=== PATIENT | female | born 1960 | race Caucasian/White ===

== ENCOUNTER → 2023-04-16 | Outpatient (CLI) | payer OTHER ==
[2023-04-18 15:12] LABS: HPV 16 Negative (Negative); HPV 18 Negative (Negative); HPV OTHER HR TYPES Negative (Negative)
== END | disposition home or self-care (01) ==
LOC: LAB SHORT 14:09 → LAB 14:09
PROVIDERS: Obstetrics & Gynecology
DX: Z01.419 Encounter for gynecological examination (general) (routine) without abnormal findings (principal)
CPT/HCPCS: 87624; G0145

== ENCOUNTER 2024-08-15 13:12 | Observation (INO) | payer OTHER ==
[~2024-08-15] VITALS: Ht 157.5 cm; Wt 55.8 kg
[2024-08-15 14:21] LABS: BASOPHILS ABSOLUTE AUTO 0.02 K/mm3 (0.00-0.23); BASOPHILS PERCENT AUTO 0 % (0-2); EOSINOPHILS ABSOLUTE AUTO 0.01 K/mm3 (0.00-0.68); EOSINOPHILS PERCENT AUTO 0 % (0-6); Hematocrit 39.5 % (33.0-51.0); Hemoglobin 13.5 g/dL (11.5-16.0); IMMATURE GRAN ABSOLUTE AUTO 0.05 K/mm3 (0.00-0.10); IMMATURE GRAN PERCENT AUTO 0 % (0-1); LYMPHOCYTES ABSOLUTE AUTO 1.39 K/mm3 (0.84-5.20); LYMPHOCYTES PERCENT AUTO 9 % (21-46); MONOCYTES ABSOLUTE AUTO 0.96 K/mm3 (0.16-1.47); MONOCYTES PERCENT AUTO 7 % (4-13); Mean Corpuscular HGB 30.1 pg (26.0-34.0); Mean Corpuscular HGB Conc 34.2 g/dL (31.5-36.5); Mean Corpuscular Volume 88 fL (80-100); Mean Platelet Volume 9.5 fL (9.1-12.4); NEUTROPHILS ABSOLUTE AUTO 12.32 K/mm3 (1.96-9.15); NEUTROPHILS PERCENT AUTO 84 % (41-73); Platelet Count 224 K/mm3 (150-400); RDW Coefficient Variation 13.5 % (11.7-14.2); RDW Standard Deviation 43.9 fL (35.1-46.3); Red Blood Cell Count 4.48 M/mm3 (3.80-5.20); White Blood Cell Count 14.75 K/mm3 (4.00-11.30)
[2024-08-15 14:30] LABS: Source, Urine Clean Catch
[2024-08-15 14:31] LABS: Albumin, Blood 3.6 g/dL (3.4-5.0); Bilirubin, Total 2.4 mg/dL (0.1-1.0); Bun/Creatinine Ratio 24.8 (12.0-20.0); Calcium, Blood 9.4 mg/dL (8.5-10.1); Creatinine, Blood 0.65 mg/dL (0.40-1.00); Globulin, Blood 3.7 g/dL (2.2-4.0); Potassium, Blood 3.4 mmol/L (3.5-5.5); Total Protein, Blood 7.3 g/dL (6.4-8.2)
[2024-08-15 14:35] LABS: Appearance, Urine Hazy (Clear); Blood, Urine 5+ (Neg); Color, Urine Amber (P-Yellow); Glucose Qualitative, Urine Neg (Neg); Ketones, Urine 4+ (Neg); Leukocyte Esterase, Urine 1+ (Neg); Nitrite, Urine Neg (Neg); Protein, Urine 2+ (Neg); Specific Gravity, Urine 1.025 (1.003-1.022); Urobilinogen, Urine 1+ (Normal)
[2024-08-15 15:06] LABS: Bilirubin, Urine 1+ (Neg)
[2024-08-15 15:07] LABS: Amorphous Light (0-Heavy); Bacteria Many /hpf; Hyaline Casts 0-2 /lpf (0-2); Mucus Heavy (0-Heavy); Squamous Epithelial Cells Mod /hpf (Few); Transitional Epithelial Cells Few /hpf (0-Rare)
[2024-08-15 15:08] LABS: Red Blood Cells, Urine 50-100 /hpf (0-2)
[2024-08-15] MEDS ORDERED: Ondansetron HCl 2 MG / ML 2ML Vial IV ONE (15:45)
[2024-08-15] MEDS ORDERED: XANAX0.25 MG PO ×2 (15:46)
[2024-08-15] MEDS ORDERED: FOSAMAX70 MG PO ×2 (15:46)
[2024-08-15] MEDS ORDERED: MetroNIDAZOLE 500MG/NS 100 ml 100 ML IV ONE (15:55)
[2024-08-15] MEDS ORDERED: Morphine Sulfate 4 MG/1 ML Injection IV ONE (16:00)
[2024-08-15] MEDS ORDERED: CefTRIAXone Sodium 1,000 MG in NS 100 ML IV ONE (16:00)
[2024-08-15] MEDS ORDERED: Ondansetron HCl 2 MG / ML 2ML Vial IV PRN (16:40)
[2024-08-15] MEDS ORDERED: FLU VACC TS2024-25(6MOS UP)/PF 45 MCG/0.5 ML SYRINGE IM SCH (16:40)
[2024-08-15] MEDS ORDERED: Lactated Ringer's 1,000 ML IV SCH (16:40)
[2024-08-15] MEDS ORDERED: FentaNYL Citrate 50 MCG/ML 2 ML Injection IV PRN (16:40)
[2024-08-15] MEDS ORDERED: Potassium Chloride 20 MEQ TabCR PO ONE (16:45)
[2024-08-15 19:06] VITALS: BP 120/81
[2024-08-15] MEDS ORDERED: Lactobacil 2-S.Thermo-Bifido 1 1 Cap PO SCH (21:00)
[2024-08-16] VITALS (9 sets, daily range): BP systolic 102–121; BP diastolic 51–67
[2024-08-16] MEDS ORDERED: MetroNIDAZOLE 500MG/NS 100 ml 100 ML IV SCH
[2024-08-16] MEDS ORDERED: FentaNYL Citrate 50 MCG/ML 2 ML Injection IV ONE (05:00)
[2024-08-16 05:34] LABS: BASOPHILS ABSOLUTE AUTO 0.03 K/mm3 (0.00-0.23); BASOPHILS PERCENT AUTO 0 % (0-2); EOSINOPHILS ABSOLUTE AUTO 0.03 K/mm3 (0.00-0.68); EOSINOPHILS PERCENT AUTO 0 % (0-6); Hematocrit 34.9 % (33.0-51.0); Hemoglobin 11.9 g/dL (11.5-16.0); IMMATURE GRAN ABSOLUTE AUTO 0.06 K/mm3 (0.00-0.10); IMMATURE GRAN PERCENT AUTO 1 % (0-1); LYMPHOCYTES ABSOLUTE AUTO 1.72 K/mm3 (0.84-5.20); LYMPHOCYTES PERCENT AUTO 13 % (21-46); MONOCYTES ABSOLUTE AUTO 1.14 K/mm3 (0.16-1.47); MONOCYTES PERCENT AUTO 9 % (4-13); Mean Corpuscular HGB 30.1 pg (26.0-34.0); Mean Corpuscular HGB Conc 34.1 g/dL (31.5-36.5); Mean Corpuscular Volume 88 fL (80-100); Mean Platelet Volume 9.5 fL (9.1-12.4); NEUTROPHILS ABSOLUTE AUTO 10.34 K/mm3 (1.96-9.15); NEUTROPHILS PERCENT AUTO 78 % (41-73); Platelet Count 191 K/mm3 (150-400); RDW Coefficient Variation 13.5 % (11.7-14.2); RDW Standard Deviation 44.2 fL (35.1-46.3); Red Blood Cell Count 3.95 M/mm3 (3.80-5.20); White Blood Cell Count 13.32 K/mm3 (4.00-11.30)
[2024-08-16 05:53] LABS: Bun/Creatinine Ratio 23.4 (12.0-20.0); Calcium, Blood 8.8 mg/dL (8.5-10.1); Creatinine, Blood 0.6 mg/dL (0.40-1.00); Potassium, Blood 3.8 mmol/L (3.5-5.5)
[2024-08-16] MEDS ORDERED: FentaNYL Citrate 50 MCG/ML 2 ML Injection IV PRN (06:00)
--- NOTE | 2024-08-16 06:21 | NUR ---
Shift Summary Pt somewhat painful in LRQ t/o the night. This AM around 0400 pt had a sudden increase in pain and nausea. Medicated per EMAR and contacted hospitalist who increased Fentanyl dose. No emesis, pt still able to sleep. Pt has been NPO all shift in anticipation for appendix removal today. Rcving LR@100. AOx4, indepedent in the room.
[2024-08-16] MEDS ORDERED: FentaNYL Citrate 50 MCG/ML 2 ML Injection ONE (08:43)
[2024-08-16] MEDS ORDERED: propofoL 20 ML IV ONE (08:43)
[2024-08-16] MEDS ORDERED: Rocuronium Bromide 10 MG/ML 5ML Injection IV ONE (08:45)
[2024-08-16] MEDS ORDERED: Bupivacaine 0.5% HCl 5 MG/ML 30MLVIAL ONE (08:54)
[2024-08-16] MEDS ORDERED: CefTRIAXone Sodium 1,000 MG in NS 100 ML IV SCH (09:00)
[2024-08-16] MEDS ORDERED: Lactated Ringer's 1,000 ML IV ONE (09:15)
[2024-08-16] MEDS ORDERED: Scopolamine Hydrobromide Patch ONE (09:25)
[2024-08-16] MEDS ORDERED: Dexamethasone Sod Phos 10 MG/ML 1ML VIAL ONE (09:41)
[2024-08-16] MEDS ORDERED: Ketorolac Tromethamine 30mg Vial ONE (09:41)
[2024-08-16] MEDS ORDERED: Sugammadex Sodium 200 MG/2ML SDV (100 MG/ML) ONE (09:41)
[2024-08-16] MEDS ORDERED: Ondansetron HCl 2 MG / ML 2ML Vial ONE (09:41)
[2024-08-16] MEDS ORDERED: Scopolamine Hydrobromide Patch TOP ONE (09:45)
--- NOTE | 2024-08-16 09:48 | NUR ---
PT TO PACU VIA [facility] FOR PEROP CARE AT 0920, PLEASANT & COOPERATIVE. LR AT TKO INFUSING. FEBRILE 99.2. SURGICAL PACK COMPLETE. SURGICAL HAT/PAS SLEEVES/BP CUFF PLACED. NO COMPLAINTS. DR STARR AT [facility] SIDE.
--- NOTE | 2024-08-16 09:52 | NUR ---
PT TO OR 2 VIA [facility] IN STABLE CONDITION AT 0930.
[2024-08-16] MEDS ORDERED: OxyCODONE HCL 5 MG TAB PO PRN (10:40)
--- NOTE | 2024-08-16 12:23 | NUR ---
PATIENT ALERT AND DRINKING WATER/EATING SNACKS. SHE IS TOLERATING WELL AND DENYING PAIN OR NAUSEA. VITALS ARE STABLE. PATIENT WISHES TO BE DISCHARGED. COMMUNICATED WITH DR. REYNOSO AND SHE ADVISED FOR ME TO COMMUNICATE WITH DR. STARR. CALL MADE TO DR. STARR NO ANSWER LEFT MESSAGE TO COMMUNICATE WITH DR. REYNOSO IF PATIENT IS CLEARED FOR DISCHARGE.
[2024-08-16] MEDS ORDERED: VISBIOME 112.51 EACH PO ×2 (13:03)
[2024-08-16] MEDS ORDERED: OXYC5 PO ×2 (13:03)
[2024-08-16] MEDS ORDERED: LEVO750 PO ×2 (13:03)
--- NOTE | 2024-08-16 13:48 | NUR ---
DISCHARGE NOTE: WENT OVER DISCHARGE WITH THE PATIENT. PATIENT'S IV WAS REMOVED, SHE GOT HERSELF DRESSED, GATHERED BELONGINGS, AND WAS WHEELED OUT BY HER . NO SIGNS OR SYMPTOMS OF DISTRESS DURING DISCHARGE.
--- NOTE | 2024-08-16 14:34 | NUR ---
DR. REYNOSO CALLED AND REQUESTED THAT A PRESCRIPTION BE CALLED INTO THE PHARMACAY. MEDICATION FLAGYL 500 MG PO TID FOR 5 DAYS; QUANITY #15. CALL MADE TO [facility] AND LEFT A MESSAGE. CALLED AND LEFT A MESSAGE FOR THE PATIENT WELL AND TO CALL BACK IF NEEDED.
[2024-08-16] MEDS ORDERED: LevoFLOXacin 500MG/D5W 100ML 100 ML IV SCH (16:00)
== END 2024-08-16 13:48 | disposition home or self-care (01) ==
LOC: ER 13:12 → MEDS 13:13 → SURS 13:13 → MEDS 18:47 → ENPENDDIS 08-16 14:09
PROVIDERS: Student in an Organized Health Care Education/Training Program; Surgery; ADMIT Family Medicine
PROC: 0DTJ4ZZ Resection of Appendix, Percutaneous Endoscopic Approach (ICD-10-PCS; principal; 2024-08-16 08:00)
DX: K35.32 Acute appendicitis with perforation, localized peritonitis, and gangrene, without abscess (principal); E87.6 Hypokalemia; M81.0 Age-related osteoporosis without current pathological fracture; Z79.83 Long term (current) use of bisphosphonates; Z79.899 Other long term (current) drug therapy; Z88.0 Allergy status to penicillin; Z88.5 Allergy status to narcotic agent; Z88.1 Allergy status to other antibiotic agents; Z90.49 Acquired absence of other specified parts of digestive tract
CPT/HCPCS: 36415; 74177; 80048; 80053; 81001; 83690; 85025; 87086; 88304; 93005; 93010; 96365-59; 96375; 96376; 99285-25; A9270; G0378; J0696; J1100; J1885; J2270; J2405; J2704; J3010; J7120; Q9967

== ENCOUNTER 2024-08-19 09:45 | Emergency (ER) | payer OTHER ==
[~2024-08-19] VITALS: Ht 157.5 cm; Wt 56.2 kg
[~2024-08-19 09:45] MED LIST: FOSAMAX70 MG PO; LEVO750 PO; OXYC5 PO; VISBIOME 112.51 EACH PO; XANAX0.25 MG PO
[2024-08-19 10:42] LABS: BASOPHILS ABSOLUTE AUTO 0.04 K/mm3 (0.00-0.23); BASOPHILS PERCENT AUTO 0 % (0-2); EOSINOPHILS ABSOLUTE AUTO 0.04 K/mm3 (0.00-0.68); EOSINOPHILS PERCENT AUTO 0 % (0-6); Hematocrit 38.6 % (33.0-51.0); Hemoglobin 13.4 g/dL (11.5-16.0); IMMATURE GRAN ABSOLUTE AUTO 0.04 K/mm3 (0.00-0.10); IMMATURE GRAN PERCENT AUTO 0 % (0-1); LYMPHOCYTES ABSOLUTE AUTO 2.08 K/mm3 (0.84-5.20); LYMPHOCYTES PERCENT AUTO 21 % (21-46); MONOCYTES ABSOLUTE AUTO 0.97 K/mm3 (0.16-1.47); MONOCYTES PERCENT AUTO 10 % (4-13); Mean Corpuscular HGB 29.6 pg (26.0-34.0); Mean Corpuscular HGB Conc 34.7 g/dL (31.5-36.5); Mean Corpuscular Volume 85 fL (80-100); Mean Platelet Volume 9.6 fL (9.1-12.4); NEUTROPHILS ABSOLUTE AUTO 6.92 K/mm3 (1.96-9.15); NEUTROPHILS PERCENT AUTO 69 % (41-73); Platelet Count 302 K/mm3 (150-400); RDW Coefficient Variation 13.1 % (11.7-14.2); RDW Standard Deviation 40.9 fL (35.1-46.3); Red Blood Cell Count 4.52 M/mm3 (3.80-5.20); White Blood Cell Count 10.09 K/mm3 (4.00-11.30)
[2024-08-19] MEDS ORDERED: NS 1,000 ML IV SCH (10:45)
[2024-08-19 11:07] LABS: Albumin, Blood 2.9 g/dL (3.4-5.0); Albumin/Globulin Ratio 0.8 (0.8-1.8); Bun/Creatinine Ratio 32.8 (12.0-20.0); Calcium, Blood 8.8 mg/dL (8.5-10.1); Creatinine, Blood 0.49 mg/dL (0.40-1.00); Globulin, Blood 3.5 g/dL (2.2-4.0); Potassium, Blood 3.7 mmol/L (3.5-5.5); Total Protein, Blood 6.4 g/dL (6.4-8.2)
[2024-08-19 12:02] LABS: Source, Urine Clean Catch
[2024-08-19 12:14] LABS: Bilirubin, Urine Neg (Neg); Blood, Urine 1+ (Neg); Glucose Qualitative, Urine Neg (Neg); Ketones, Urine 2+ (Neg); Leukocyte Esterase, Urine Neg (Neg); Nitrite, Urine Neg (Neg); Protein, Urine Neg (Neg); Urobilinogen, Urine NORM (Normal)
[2024-08-19] MEDS ORDERED: ONDA4ODT MM (12:24)
[2024-08-19 12:35] LABS: Appearance, Urine Clear (Clear); Color, Urine Yellow (P-Yellow)
[2024-08-19 12:36] LABS: Bacteria Not Seen /hpf; Red Blood Cells, Urine 0-2 /hpf (0-2); Squamous Epithelial Cells Rare /hpf (Few); White Blood Cells, Urine Not Seen /hpf (0-5)
[2024-08-19 12:47] VITALS: BP 139/87
== END 2024-08-19 12:48 | disposition home or self-care (01) ==
LOC: ER 09:45
PROVIDERS: Emergency Medicine
DX: G89.18 Other acute postprocedural pain (principal); R10.31 Right lower quadrant pain; Z90.49 Acquired absence of other specified parts of digestive tract; Z79.899 Other long term (current) drug therapy; Z88.0 Allergy status to penicillin; Z88.5 Allergy status to narcotic agent
CPT/HCPCS: 74177; 80053; 81001; 83690; 85025; 96360-59; 99284-25; J7030; Q9967

== ENCOUNTER → 2024-11-18 | Outpatient (CLI) | payer OTHER ==
[~2024-11-18] MED LIST changes: +ONDA4ODT MM
[2024-11-18 13:27] LABS: Source, Urine Clean Catch
[2024-11-18 18:59] LABS: Appearance, Urine Turbid (Clear); Bilirubin, Urine Neg (Neg); Blood, Urine 3+ (Neg); Color, Urine Yellow (P-Yellow); Glucose Qualitative, Urine Neg (Neg); Ketones, Urine 1+ (Neg); Leukocyte Esterase, Urine Neg (Neg); Nitrite, Urine Neg (Neg); Protein, Urine 1+ (Neg); Specific Gravity, Urine 1.025 (1.003-1.022); Urobilinogen, Urine NORM (Normal)
[2024-11-18 19:10] LABS: Amorphous Heavy (0-Heavy); White Blood Cells, Urine 0-2 /hpf (0-5)
[2024-11-18 19:11] LABS: Bacteria Rare /hpf; Squamous Epithelial Cells Rare /hpf (Few)
== END ==
LOC: LAB 13:10 → LAB SHORT 13:10
PROVIDERS: Family Medicine
DX: R31.29 Other microscopic hematuria (principal)
CPT/HCPCS: 81001

== ENCOUNTER → 2025-07-13 | Outpatient (CLI) | payer OTHER | LOC: LAB SHORT 11:30 → LAB 11:30 | DX: L08.0 Pyoderma (principal) | CPT/HCPCS: 87070; 87077; 87186; 87205 ==